=== PATIENT | female | born 1975 | race Hispanic/Latino ===

== ENCOUNTER 2017-10-31 16:02 | Emergency (ER) | payer OTHER, BC ==
--- NOTE | 2017-10-31 18:09 | RAD ---
TWO VIEWS RIGHT HIP: History: Right hip pain for one month. Difficulty walking. FINDINGS: AP and frogleg views right hip obtained. The right hip is unremarkable. No evidence of fractures, subluxations, or bony lesions seen. IMPRESSION: Unremarkable AP and frogleg views right hip. POS: [facility]
[2017-10-31] MEDS ORDERED: Diazepam 5 MG TAB ONE (18:45)
== END 2017-10-31 18:47 | disposition home or self-care (01) ==
LOC: ERS 16:02
DX: S76.011A Strain of muscle, fascia and tendon of right hip, initial encounter (principal); E03.9 Hypothyroidism, unspecified; G43.909 Migraine, unspecified, not intractable, without status migrainosus; X50.9XXA Other and unspecified overexertion or strenuous movements or postures, initial encounter

== ENCOUNTER 2018-04-17 16:38 | Emergency (ER) | payer OTHER, BC ==
[2018-04-17 17:09] LABS: #Eosinphils 0.4 thou/uL (0.0-0.7); #Lymphocytes 1.4 thou/uL (1.20-3.40); #Monocytes 0.5 thou/uL (0.11-0.59); #Neutrophils 3.6 thou/uL (1.40-6.50); %Basophils 0.3 % (0.0-1.0); %Eosinophils 6.1 % (0.0-10.0); %Lymphocytes 23.7 % (21.0-51.0); %Monocytes 8.8 % (0.0-10.0); %Neutrophils 61.1 % (42.0-75.0); Hemoglobin 14.5 g/dL (12.0-16.0); Mean Corpuscular Hemoglobin 30.3 pg (27.0-31.0); Mean Corpuscular Volume 89.3 fl (81.0-99.0); Mean Platelet Volume 6.3 fL (7.4-10.4); Platelet Count 313 thou/uL (130-400); Red Blood Cell (RBC) Count 4.78 mill/uL (4.20-5.40); White Blood Cell (WBC) Count 5.9 thou/uL (4.8-10.8)
[2018-04-17 17:36] LABS: ALT (SGPT) 34 U/L (8-55); AST (SGOT) 29 U/L (5-34); Albumin 4.4 g/dL (3.5-5.0); Alkaline Phosphatase 75 U/L (40-150); Anion Gap 11 mmol/L (10-20); BUN (Urea Nitrogen) 11 mg/dL (7.0-18.7); Bilirubin, Total 0.5 mg/dL (0.2-1.2); Calc. Creatinine Clearance 0 mL/min (70-130); Calcium 9.2 mg/dL (7.8-10.44); Carbon Dioxide 21 mmol/L (22-29); Chloride 110 mmol/L (98-107); Estimated GFR-MDRD 74; Globulin 3.4 g/dL (2.4-3.5); Glucose 117 mg/dL (70-105); Lipase 11 U/L (8-78); Potassium 3.7 mmol/L (3.5-5.1); Protein, Total 7.8 g/dL (6.0-8.3); Sodium 138 mmol/L (136-145)
[2018-04-17 18:53] LABS: Bilirubin Negative (Negative); Blood, Urine Large (Negative); Clarity CLEAR (Clear); Glucose, Urine (Dipstick) Negative (Negative); Leukocyte Negative (Negative); Nitrite Negative (Negative); Protein, Urine (Dipstick) Negative (Neg-Trace); Specific Gravity, Urine 1.024 (1.002-1.036); Urobilinogen 0.2 mg/dL (0.2-1.0); pH, Urine 6.5 (5.0-9.0)
[2018-04-17 18:55] LABS: Bacteria/HPF None Seen HPF (None Seen); Hyaline Casts/LPF 0-3 HYALINE CAST LPF (0-3 Hyaline); Pathc Cast-AUWi Flag 0.43 (0-2.49); RBC/HPF 21-50 HPF (0-3); Squamous Epithelial 0-3 HPF (0-3); WBC/HPF 0-3 HPF (0-3)
[2018-04-17 19:01] LABS: Pregnancy Test - Urine (BHCG) Negative (Negative); Pregu Control Background? CLEAR/WHITE (CLR/WHITE); Pregu Control Bar Appear? YES (CONTROL BAR); Specific Gravity 1.024 (1.002-1.036)
[2018-04-17] MEDS ORDERED: Promethazine 25 MG TAB ONE (20:41)
== END 2018-04-17 20:52 | disposition home or self-care (01) ==
LOC: ERS 16:38
DX: R10.11 Right upper quadrant pain (principal); E03.9 Hypothyroidism, unspecified; G43.909 Migraine, unspecified, not intractable, without status migrainosus; F41.9 Anxiety disorder, unspecified; Z79.899 Other long term (current) drug therapy
CPT/HCPCS: 36415; 80053; 81003; 81015; 81025; 83690; 85025; 96360

== ENCOUNTER 2018-05-30 14:40 | Outpatient (CLI) | payer OTHER, BC ==
[2018-05-30 15:57] LABS: #Basophils 0.1 thou/uL (0.0-0.2); #Eosinphils 0.4 thou/uL (0.0-0.7); #Lymphocytes 2.6 thou/uL (1.20-3.40); #Monocytes 0.5 thou/uL (0.11-0.59); #Neutrophils 4.1 thou/uL (1.40-6.50); %Basophils 0.7 % (0.0-1.0); %Eosinophils 5.6 % (0.0-10.0); %Lymphocytes 33.5 % (21.0-51.0); %Monocytes 6.8 % (0.0-10.0); %Neutrophils 53.4 % (42.0-75.0); Mean Corpuscular HGB CONC 34.3 g/dL (32.0-36.0); Mean Corpuscular Hemoglobin 30.6 pg (27.0-31.0); Mean Corpuscular Volume 89.3 fL (78.0-98.0); Mean Platelet Volume 6.2 fL (7.4-10.4); Platelet Count 350 thou/uL (130-400); Red Blood Cell (RBC) Count 4.56 mill/uL (4.20-5.40); White Blood Cell (WBC) Count 7.7 thou/uL (4.8-10.8)
[2018-05-30 16:01] LABS: BHCG - Serum Negative (NEGATIVE); Pregs Control Background? CLEAR/WHITE (CLR/WHITE); Pregs Control Bar Appear? YES (CONTROL BAR)
[2018-05-30 16:16] LABS: ALT (SGPT) 27 U/L (8-55); AST (SGOT) 21 U/L (5-34); Albumin 4.1 g/dL (3.5-5.0); Alkaline Phosphatase 77 U/L (40-150); Anion Gap 9 mmol/L (10-20); BUN (Urea Nitrogen) 17 mg/dL (7.0-18.7); Bilirubin, Total 0.3 mg/dL (0.2-1.2); Calc. Creatinine Clearance 0 mL/min (70-130); Carbon Dioxide 25 mmol/L (22-29); Chloride 108 mmol/L (98-107); Estimated GFR-MDRD 77; Globulin 3.2 g/dL (2.4-3.5); Glucose 104 mg/dL (70-105); Protein, Total 7.3 g/dL (6.0-8.3); Sodium 138 mmol/L (136-145)
== END 2018-05-30 14:41 | disposition home or self-care (01) ==
LOC: LABBT 14:40
PROVIDERS: ATTEND Surgery
DX: Z01.812 Encounter for preprocedural laboratory examination (principal); K43.9 Ventral hernia without obstruction or gangrene
CPT/HCPCS: 80053; 84703; 85025

== ENCOUNTER 2018-06-01 06:51 | Inpatient (IN) | payer OTHER, BC ==
[2018-05-30 15:20] VITALS: BMI 30.4
[2018-06-01] MEDS ORDERED: CEFAZOLIN/Water 2 GM/20 ML SYRINGE ONE (07:28)
[2018-06-01] MEDS ORDERED: Bupivacaine HCl 0.25%/Epi 0.0005/PF 10 ML VIAL FS ONE (08:39)
[2018-06-01] MEDS ORDERED: Midazolam HCl 2 mg/2 ml Vial ONE ×2 (08:57→09:01)
[2018-06-01] MEDS ORDERED: Fentanyl 100 MCG/2 ML VIAL ONE (09:01)
[2018-06-01] MEDS ORDERED: HYDROmorphone 0.5 MG/0.5 ML SYRINGE ONE (09:01)
[2018-06-01] MEDS ORDERED: diphenhydrAMINE 50 MG/ML VIAL IVP PRN (09:57)
[2018-06-01] MEDS ORDERED: Naloxone HCl 0.4 mg/ml Vial IV PRN (09:57)
[2018-06-01] MEDS ORDERED: Promethazine HCl 25 MG/ML VIAL IM PRN ×3 (09:57→10:20)
[2018-06-01] MEDS ORDERED: Zolpidem Tartrate 5 MG TAB PO PRN (09:57)
[2018-06-01] MEDS ORDERED: diphenhydrAMINE 25 MG CAP PO PRN (09:57)
[2018-06-01] MEDS ORDERED: Promethazine HCl 25 MG/ML VIAL SLOW IVP PRN ×2 (09:57→17:50)
[2018-06-01] MEDS ORDERED: diphenhydrAMINE 50 MG/ML VIAL IM PRN (09:57)
[2018-06-01] MEDS ORDERED: Morphine CADD 1 MG/ML CADD IVPB PRN (09:57)
[2018-06-01] MEDS ORDERED: Meperidine HCl/PF 25 MG/ML VIAL SLOW IVP PRN (09:57)
[2018-06-01] MEDS ORDERED: Ondansetron HCl/PF 4 MG/2 ML Vial IVP PRN ×3 (09:57→10:20)
[2018-06-01] MEDS ORDERED: Communication Order-Pharmacy FS SCH (10:00)
[2018-06-01] MEDS ORDERED: HYDROcodone/Acetaminophen 10/325 mg Tablet PO PRN ×2 (10:20)
[2018-06-01] MEDS ORDERED: Dextrose 5% in Water 1,000 ML IV PRN (10:20)
[2018-06-01] MEDS ORDERED: Morphine 4 MG/ML Carpuject SLOW IVP PRN (10:20)
[2018-06-01] MEDS ORDERED: Dextrose 50% Abboject 50 ML SYRINGE SLOW IVP PRN (10:20)
[2018-06-01] MEDS ORDERED: hydrALAZINE 20 MG/ML VIAL SLOW IVP PRN (10:20)
[2018-06-01] MEDS ORDERED: Ketorolac Tromethamine 30 MG/ML VIAL IVP SCH (12:00)
[2018-06-01] MEDS ORDERED: Acetaminophen 1,000 MG in Premix Bag 1 BAG IVPB SCH (12:00)
--- NOTE | 2018-06-01 12:08 | OP ---
DATE OF PROCEDURE: 06/01/2018 PREOPERATIVE DIAGNOSIS: Ventral hernia. SURGEON: Ric Pickering M.D. PROCEDURE: Laparoscopic ventral hernia repair with mesh. INDICATIONS: A 42-year-old female who has developed a bulge just above the umbilicus. She has had a bdominoplasty. The bulge seems to change with activity. FINDINGS: She had 2 small hernias. She had a small umbilical hernia and a small epigastric hernia. There was quite a bit of preperitoneal adipose in that ventral area that was removed. PROCEDURE IN DETAIL: After informed consent was obtained, the patient was taken to the operating geovani m and given general endotracheal anesthesia. She was placed in the supine position with the right si de slightly elevated. Her flank and abdomen were prepped and draped in usual fashion. Local anesthe hans infiltrated subcutaneously and deep. A 12 mm incision was performed right flank. Veress needle inserted. Drop test performed. Pneumoperitoneum was created to a volume of 2 liters of carbon dioxi de. Utilizing a bladeless 12 mm trocar and 0 degree laparoscope direct visual entry abdominal cavity was performed. Pneumoperitoneum was created to a pressure of 15 mmHg and two 5 mm ports were placed right lateral abdomen. The anterior abdominal wall was inspected. Initially I did not see an obvio us hernia, but she had a lot of preperitoneal fat, so I wound up taking this down to expose the fasci a and actually found 2 hernias, I found a small umbilical hernia as well as an epigastric hernia. Ad ditional adipose was removed from these small defects into the subcu and added to the adipose that I removed from the anterior abdominal wall. They were within 2 cm of each other, so a 12 x 12 cm Proce ed mesh was used. This was fashioned by placing four 0 Ethibond sutures spread out evenly across the perimeter, then the mesh was hydrated, rolled, and inserted intra-abdominally. Then it was unrolled and the pressure was decreased to 10 mmHg. The sutures were then individually grasped utilizing the GraNee needle and secured. The mesh was further secured to the abdominal wall with the SecureStrap Tacker. Hemostasis was assured. The 12 mm port was closed, fascia was closed with 0 Vicryl suture a nd the GraNee needle. Hemostasis assured, but prior to closure, I placed an Endosac through the 12 m m port and retrieved any of the adipose that had been resected from the anterior abdominal wall. Hem ostasis was assured. Trocars and retractors removed. The skin closed with interrupted 4-0 Rapide. Dermabond applied. The patient tolerated the procedure well and was transferred to recovery in good condition. Sponge and needle count verified correct x2.
[2018-06-01] MEDS: Lactated Ringer's 1,000 ML IV SCH ×2 (13:14→22:19)
[2018-06-01] MEDS ORDERED: PROPOFOL 200 MG/20 ML VIAL ONE (15:09)
[2018-06-01] MEDS ORDERED: Ondansetron HCl/PF 4 MG/2 ML Vial ONE (15:09)
[2018-06-01] MEDS ORDERED: Lidocaine 1% PF 5 ML VIAL ONE (15:09)
[2018-06-01] MEDS ORDERED: Dexamethasone 20 MG/5 ML VIAL ONE (15:09)
[2018-06-01] MEDS ORDERED: Glycopyrrolate 0.2 MG/ML 5 ML SYRINGE ONE (15:09)
[2018-06-01] MEDS ORDERED: Ketorolac Tromethamine 30 MG/ML VIAL ONE (15:09)
[2018-06-01] MEDS: Acetaminophen 1,000 MG in Premix Bag 1 BAG IVPB SCH ×2 (16:26→22:18)
[2018-06-01] MEDS: Ketorolac Tromethamine 30 MG/ML VIAL IVP SCH ×2 (16:26→22:18)
[2018-06-01] MEDS: cefOXitin 2 GM in Sodium Chloride 0.9% 100 ML IVPB SCH (17:08)
[2018-06-01] MEDS ORDERED: HYDROcodone/Acetaminophen 5/325 mg Tablet PO PRN ×2 (19:59)
[2018-06-01] MEDS ORDERED: Morphine 4 MG/ML VIAL SLOW IVP PRN (20:01)
[2018-06-01] MEDS ORDERED: Docusate 100 MG CAP PO PRN (20:06)
[2018-06-01] MEDS ORDERED: Famotidine/PF 20 mg/2ml Vial SLOW IVP SCH (21:00)
[2018-06-01] MEDS: Famotidine 20 MG TAB PO SCH (21:24)
[2018-06-02] MEDS: cefOXitin 2 GM in Sodium Chloride 0.9% 100 ML IVPB SCH ×2 (00:29→08:59)
[2018-06-02 04:31] LABS: #Lymphocytes 1.7 thou/uL (1.20-3.40); #Monocytes 0.9 thou/uL (0.11-0.59); #Neutrophils 10.8 thou/uL (1.40-6.50); %Basophils 0.1 % (0.0-1.0); %Eosinophils 0.1 % (0.0-10.0); %Lymphocytes 12.7 % (21.0-51.0); %Monocytes 6.5 % (0.0-10.0); %Neutrophils 80.7 % (42.0-75.0); Hemoglobin 12.6 g/dL (12.0-16.0); Mean Corpuscular HGB CONC 33.6 g/dL (32.0-36.0); Mean Corpuscular Hemoglobin 30.7 pg (27.0-31.0); Mean Corpuscular Volume 91.3 fL (78.0-98.0); Mean Platelet Volume 6.4 fL (7.4-10.4); Platelet Count 306 thou/uL (130-400); RBC Distribution Width 12.1 % (11.5-14.5); Red Blood Cell (RBC) Count 4.11 mill/uL (4.20-5.40); White Blood Cell (WBC) Count 13.4 thou/uL (4.8-10.8)
[2018-06-02] MEDS: Ketorolac Tromethamine 30 MG/ML VIAL IVP SCH (05:09)
[2018-06-02] MEDS: Acetaminophen 1,000 MG in Premix Bag 1 BAG IVPB SCH (05:09)
[2018-06-02 07:39] VITALS: BP 107/68; TEMP 97.9
[2018-06-02] MEDS: Lactated Ringer's 1,000 ML IV SCH (07:43)
--- NOTE | 2018-06-02 08:10 | DIS ---
DISCHARGE DIAGNOSIS: Ventral hernia. SURGEON: Dr. Ric Pickering PROCEDURES DURING ADMISSION: Laparoscopic ventral hernia repair with mesh. HOSPITAL COURSE: The patient was admitted, taken to the operating room where she underwent a laparos copic ventral hernia repair with mesh. Postoperatively, she is doing well. She did have some nausea and vomiting that has resolved, it is related to her narcotics. She is feeling much better, tolerat ing liquids. She is discharged home in good condition on hydrocodone and Zofran. She will follow up with me in 2 weeks.
[2018-06-02] MEDS ORDERED: Enoxaparin Sodium 40 MG/0.4 ML SYRINGE SC SCH (09:00)
[2018-06-02] MEDS: Famotidine 20 MG TAB PO SCH (09:04)
== END 2018-06-02 11:30 | disposition home or self-care (01) | DRG 355 ==
LOC: SDC 06:51 → SURG B 11:56
PROVIDERS: ADMIT Surgery; ATTEND Surgery
PROC: 0WUF0JZ Supplement Abdominal Wall with Synthetic Substitute, Open Approach (ICD-10-PCS; principal; 2018-06-01)
PROC: 0WJF4ZZ Inspection of Abdominal Wall, Percutaneous Endoscopic Approach (ICD-10-PCS; 2018-06-01)
DX: K43.9 Ventral hernia without obstruction or gangrene (principal); Z90.49 Acquired absence of other specified parts of digestive tract; I10 Essential (primary) hypertension; Z88.8 Allergy status to other drugs, medicaments and biological substances
CPT/HCPCS: 36415; 85025; C1781; J0131; J0694; J1100; J1170; J1650; J1885; J2001; J2250; J2274; J2405; J2550; J2704; J3010; J7050

== ENCOUNTER 2018-07-26 19:42 | Emergency (ER) | payer OTHER, BC ==
[2018-07-26 20:54] LABS: #Basophils 0.1 thou/uL (0.0-0.2); #Eosinphils 0.4 thou/uL (0.0-0.7); #Lymphocytes 2.9 thou/uL (1.20-3.40); #Monocytes 0.5 thou/uL (0.11-0.59); #Neutrophils 4.4 thou/uL (1.40-6.50); %Basophils 0.7 % (0.0-1.0); %Lymphocytes 35.2 % (21.0-51.0); %Monocytes 5.8 % (0.0-10.0); %Neutrophils 53.3 % (42.0-75.0); Hemoglobin 13.8 g/dL (12.0-16.0); Mean Corpuscular HGB CONC 34.5 g/dL (32.0-36.0); Mean Corpuscular Hemoglobin 30.9 pg (27.0-31.0); Mean Corpuscular Volume 89.8 fL (78.0-98.0); Mean Platelet Volume 6.4 fL (7.4-10.4); Platelet Count 432 thou/uL (130-400); RBC Distribution Width 12.2 % (11.5-14.5); Red Blood Cell (RBC) Count 4.47 mill/uL (4.20-5.40); White Blood Cell (WBC) Count 8.3 thou/uL (4.8-10.8)
[2018-07-26 21:18] LABS: ALT (SGPT) 24 U/L (8-55); AST (SGOT) 17 U/L (5-34); Albumin 4.3 g/dL (3.5-5.0); Alkaline Phosphatase 83 U/L (40-150); Anion Gap 13 mmol/L (10-20); BUN (Urea Nitrogen) 13 mg/dL (7.0-18.7); Bilirubin, Total 0.3 mg/dL (0.2-1.2); CK (CPK) 50 U/L (29-168); Calc. Creatinine Clearance 0 mL/min (70-130); Calcium 9.3 mg/dL (7.8-10.44); Carbon Dioxide 23 mmol/L (22-29); Chloride 106 mmol/L (98-107); Estimated GFR-MDRD 76; Globulin 3.5 g/dL (2.4-3.5); Glucose 115 mg/dL (70-105); Lipase 12 U/L (8-78); Potassium 3.8 mmol/L (3.5-5.1); Protein, Total 7.8 g/dL (6.0-8.3); Sodium 138 mmol/L (136-145)
--- NOTE | 2018-07-26 21:24 | RAD ---
PORTABLE AP CHEST X-RAY 07/26/18 HISTORY: Chest pain. COMPARISON: 12/25/07. FINDINGS: The cardiac silhouette and pulmonary vasculature are within normal limits. There is mild patchy incre ased density at the medial right lung base which is thought to be related to superimposition of the s tructures and vasculature. Lungs are otherwise clear. No other interval change. IMPRESSION: Mild patchy density at the medial right lung base probably related to superimposition of structures i ncluding vasculature. This is not thought to be related to atelectasis or pneumonia, but followup frank st x-ray is suggested. POS: [facility]
[2018-07-26 21:27] LABS: CKMB 0.7 ng/mL (0-6.6); Troponin I Less than 0.010 ng/mL (< 0.028)
[2018-07-26] MEDS ORDERED: Ibuprofen 200 MG TAB ONE (22:56)
--- NOTE | 2018-07-29 19:44 | EKG ---
Test Reason : Blood Pressure : / mmHG Vent. Rate : 062 BPM Atrial Rate : 062 BPM P-R Int : 148 ms QRS Dur : 078 ms QT Int : 414 ms P-R-T Axes : 037 043 045 degrees QTc Int : 420 ms Normal sinus rhythm Nonspecific ST abnormality T-wave inversion in III Q waves III Abnormal ECG Confirmed by RAISSA CAPUTO M.D. ([id number]), editor magazine KIRSTAL STARKS ([id number]) on 07/29/2018 7:44:15 PM Referred By: Confirmed By:RAISSA CAPUTO M.D.
== END 2018-07-26 23:31 | disposition home or self-care (01) ==
LOC: ERS 19:42
DX: R07.89 Other chest pain (principal); E03.9 Hypothyroidism, unspecified; G43.909 Migraine, unspecified, not intractable, without status migrainosus; F41.9 Anxiety disorder, unspecified; Z79.899 Other long term (current) drug therapy
CPT/HCPCS: 36415; 71045; 80053; 82553; 83690; 83880; 84484; 85025; 93005

== ENCOUNTER 2018-08-25 12:10 | Outpatient (CLI) | payer OTHER, BC ==
--- NOTE | 2018-08-25 13:55 | RAD ---
CHEST: Date: 08/25/18 HISTORY: Probable abnormality on 07/26/18. FINDINGS: Comparison made with exam of 07/26/18. The heart size is normal. The lungs are expanded without focal areas of consolidation, pneumothoraces , or pleural effusions. A mild density in the medial right lung base is again seen, likely related to superimposition of overlying structures. IMPRESSION: Stable exam. No acute process. RECOMMENDATION: A 6 month follow-up is recommended. POS: [facility]
== END 2018-08-25 12:11 | disposition home or self-care (01) ==
LOC: BICRAD 12:10
PROVIDERS: ATTEND Family Medicine
DX: R07.9 Chest pain, unspecified (principal)
CPT/HCPCS: 71046

== ENCOUNTER 2018-11-10 12:15 | Outpatient (CLI) | payer OTHER, BC ==
--- NOTE | 2018-11-10 13:40 | CT ---
CT CHEST WITH IV CONTRAST: Date: 11-10-18 Provided Clinical History: Abdominal chest radiograph. FINDINGS: The heart, pericardium, and great vessels demonstrate an unremarkable CT appearance. The lungs are free of significant opacity. The airway appears patent and of normal caliber. No pleural fluid or pneumothorax apparent. No evidence for thoracic lymph node enlargement. Visualized portions of the upper abdomen demonstrate an unremarkable CT appearance. IMPRESSION: No evidence for an acute process. POS: [facility]
== END 2018-11-10 12:16 | disposition home or self-care (01) ==
LOC: BICCT 12:15
PROVIDERS: ATTEND Internal Medicine
DX: R91.8 Other nonspecific abnormal finding of lung field (principal)
CPT/HCPCS: 71260

== ENCOUNTER 2018-12-18 11:39 | Emergency (ER) | payer OTHER, BC ==
[2018-12-18 12:11] LABS: #Basophils 0.1 thou/uL (0.0-0.2); #Eosinphils 0.2 thou/uL (0.0-0.7); #Lymphocytes 4.7 thou/uL (1.20-3.40); #Neutrophils 7.3 thou/uL (1.40-6.50); %Basophils 0.8 % (0.0-1.0); %Eosinophils 1.6 % (0.0-10.0); %Lymphocytes 35.5 % (21.0-51.0); %Monocytes 7.5 % (0.0-10.0); %Neutrophils 54.7 % (42.0-75.0); Hemoglobin 14.9 g/dL (12.0-16.0); Mean Corpuscular HGB CONC 32.9 g/dL (32.0-36.0); Mean Corpuscular Hemoglobin 30.1 pg (27.0-31.0); Mean Corpuscular Volume 91.4 fL (78.0-98.0); Mean Platelet Volume 6.7 fL (7.4-10.4); Platelet Count 394 thou/uL (130-400); RBC Distribution Width 12.4 % (11.5-14.5); Red Blood Cell (RBC) Count 4.96 mill/uL (4.20-5.40); White Blood Cell (WBC) Count 13.3 thou/uL (4.8-10.8)
[2018-12-18 12:31] LABS: ALT (SGPT) 26 U/L (8-55); AST (SGOT) 16 U/L (5-34); Albumin 4.7 g/dL (3.5-5.0); Alkaline Phosphatase 82 U/L (40-150); Anion Gap 14 mmol/L (10-20); BUN (Urea Nitrogen) 18 mg/dL (7.0-18.7); Bilirubin, Total 0.4 mg/dL (0.2-1.2); Calc. Creatinine Clearance 0 mL/min (70-130); Calcium 9.6 mg/dL (7.8-10.44); Carbon Dioxide 24 mmol/L (22-29); Chloride 104 mmol/L (98-107); Estimated GFR-MDRD 59; Globulin 3.5 g/dL (2.4-3.5); Glucose 100 mg/dL (70-105); Potassium 3.6 mmol/L (3.5-5.1); Protein, Total 8.2 g/dL (6.0-8.3); Sodium 138 mmol/L (136-145)
[2018-12-18 13:16] LABS: BHCG - Serum Negative (NEGATIVE); Pregs Control Background? CLEAR/WHITE (CLR/WHITE); Pregs Control Bar Appear? YES (CONTROL BAR)
--- NOTE | 2018-12-18 13:41 | RAD ---
CHEST ONE VIEW ABDOMEN TWO VIEWS: History: Syncope. FINDINGS: Cardiac silhouette and pulmonary vasculature are unremarkable. Mediastinum is midline. No confluent a irspace consolidation or evidence of subdiaphragmatic gas. Gas and stool throughout the colon and rectum. No differential air fluid levels. Metallic clips overl ie the gallbladder fossa. IMPRESSION: 1. Nonspecific bowel gas pattern. No evidence of obstruction. 2. Status post cholecystectomy. POS: [facility]
[2018-12-18] MEDS ORDERED: Meclizine HCl 25 MG TAB ONE (14:24)
[2018-12-18 16:05] LABS: Bilirubin Negative (Negative); Blood, Urine Negative (Negative); Clarity CLEAR (Clear); Glucose, Urine (Dipstick) Negative (Negative); Leukocyte Trace (Negative); Nitrite Negative (Negative); Protein, Urine (Dipstick) Negative (Neg-Trace); Specific Gravity, Urine 1.015 (1.002-1.036); Urobilinogen 0.2 mg/dL (0.2-1.0)
[2018-12-18 16:07] LABS: Bacteria/HPF None Seen HPF (None Seen); Hyaline Casts/LPF 0-3 HYALINE CAST LPF (0-3 Hyaline); RBC/HPF 0-3 HPF (0-3); Squamous Epithelial 0-3 HPF (0-3); WBC/HPF 0-3 HPF (0-3)
== END 2018-12-18 15:27 | disposition home or self-care (01) ==
LOC: ERS 11:39
DX: R55 Syncope and collapse (principal); I95.9 Hypotension, unspecified; G43.909 Migraine, unspecified, not intractable, without status migrainosus; E03.9 Hypothyroidism, unspecified; F41.9 Anxiety disorder, unspecified; Z79.899 Other long term (current) drug therapy
CPT/HCPCS: 74022; 80053; 81003; 81015; 84443; 84484; 84703; 85025; 93005; 96360; 96361

== ENCOUNTER 2018-12-28 16:00 | Outpatient (CLI) | payer OTHER, BC | END 2018-12-28 16:01 | disposition home or self-care (01) | LOC: SLEEPLAB 16:00 | PROVIDERS: ATTEND Internal Medicine | DX: G47.33 Obstructive sleep apnea (adult) (pediatric) (principal); E66.9 Obesity, unspecified; F41.9 Anxiety disorder, unspecified; K21.9 Gastro-esophageal reflux disease without esophagitis; R06.83 Snoring; R35.1 Nocturia; R51 Headache; R09.89 Other specified symptoms and signs involving the circulatory and respiratory systems; Z68.32 Body mass index [BMI] 32.0-32.9, adult | CPT/HCPCS: 95806 ==

== ENCOUNTER 2019-01-15 08:50 | Outpatient (CLI) | payer OTHER, BC | END 2019-01-15 08:51 | disposition home or self-care (01) | LOC: BICMAMMO 08:50 | PROVIDERS: ATTEND Family Medicine | DX: Z12.31 Encounter for screening mammogram for malignant neoplasm of breast (principal) | CPT/HCPCS: 77063; 77067 ==

== ENCOUNTER 2019-01-15 10:02 | Outpatient (CLI) | payer OTHER, BC ==
--- NOTE | 2019-01-15 11:25 | RAD ---
TWO VIEWS OF THE CHEST: COMPARISON: 08/25/2018. HISTORY: Two view skin test. FINDINGS: Two views of the chest show normal sized cardiomediastinal silhouette. There is no evidence of consol idation, mass, or pleural effusion. The bones are unremarkable. IMPRESSION: No evidence of acute cardiopulmonary disease. POS: [facility]
== END 2019-01-15 10:03 | disposition home or self-care (01) ==
LOC: BICRAD 10:02
PROVIDERS: ATTEND Family Medicine
DX: Z11.1 Encounter for screening for respiratory tuberculosis (principal)
CPT/HCPCS: 71046

== ENCOUNTER 2020-12-09 09:30 | Outpatient (CLI) | payer BC ==
--- NOTE | 2020-12-09 10:05 | MMO ---
Bilateral MAMMO Bilat Screen [facility]. CLINICAL HISTORY: Patient is 45 years old and is seen for screening. The patient has no family history of breast cancer. The patient has no personal history of cancer. The patient has a history of Breast reduction in 2009. VIEWS: The views performed were: bilateral craniocaudal with tomosynthesis and bilateral mediolateral oblique with tomosynthesis. FILMS COMPARED: The present examination has been compared to prior imaging studies performed at [facility] on 05/17/2013 and 01/15/2019. This study has been interpreted with the assistance of computer-aided detection. MAMMOGRAM FINDINGS: There are scattered fibroglandular densities. There are no suspicious masses, suspicious calcifications, or new areas of architectural distortion. IMPRESSION: THERE IS NO MAMMOGRAPHIC EVIDENCE OF MALIGNANCY. A ROUTINE FOLLOW-UP MAMMOGRAM IN 1 YEAR IS RECOMMENDED. THE RESULTS OF THIS EXAM WERE SENT TO THE PATIENT. ACR BI-RADS Category 1 - Negative MAMMOGRAPHY NOTE: 1. A negative mammogram report should not delay a biopsy if a dominant of clinically suspicious mass is present. 2. Approximately 10% to 15% of breast cancers are not detected by mammography. 3. Adenosis and dense breasts may obscure an underlying neoplasm. Reported by: ANGELINA ARNOLD MD Electonically Signed: [id number]
== END 2020-12-09 09:31 | disposition home or self-care (01) ==
LOC: BICMAMMO 09:30
PROVIDERS: ATTEND Family Medicine
DX: Z12.31 Encounter for screening mammogram for malignant neoplasm of breast (principal); Z98.890 Other specified postprocedural states
CPT/HCPCS: 77063; 77067

== ENCOUNTER 2023-10-01 10:36 | Emergency (ER) | payer OTHER ==
[2023-10-01] MEDS ORDERED: Ketorolac Tromethamine 30 MG/ML VIAL ONE (11:30)
[2023-10-01] MEDS ORDERED: Acetaminophen 500 MG TAB ONE (11:30)
[2023-10-01] MEDS ORDERED: Prochlorperazine 10 MG/2 ML VIAL ONE (11:31)
[2023-10-01] MEDS ORDERED: Magnesium 2 GM/50 ML BAG (IN WATER) ONE (11:31)
[2023-10-01] MEDS ORDERED: methylPREDNISolone Sod Succ/PF 125 MG/2 ML VIAL ONE (11:31)
[2023-10-01 11:54] LABS: BHCG - Serum Negative (NEGATIVE); Pregs Control Background? CLEAR/WHITE (CLR/WHITE); Pregs Control Bar Appear? YES (CONTROL BAR)
[2023-10-01 12:59] LABS: #Eosinphils 0.2 thou/uL (0.0-0.7); #Monocytes 0.5 thou/uL (0.11-0.59); #Neutrophils 4.3 thou/uL (1.40-6.50); %Basophils 0.5 % (0.0-1.0); %Eosinophils 2.3 % (0.0-10.0); %Lymphocytes 31.8 % (21.0-51.0); %Monocytes 6.4 % (0.0-10.0); %Neutrophils 58.7 % (42.0-75.0); Hematocrit 42.7 % (36.0-47.0); Hemoglobin 14.3 g/dL (12.0-16.0); Mean Corpuscular HGB CONC 33.5 g/dL (32.0-36.0); Mean Corpuscular Hemoglobin 29.8 pg (27.0-31.0); Mean Platelet Volume 8.9 fL (7.4-10.4); Platelet Count 312 10x3/uL (130-400); RBC Distribution Width 13.1 % (11.5-14.5); White Blood Cell (WBC) Count 7.4 10x3/uL (4.8-10.8)
[2023-10-01 13:15] LABS: ALT (SGPT) 31 U/L (8-55); AST (SGOT) 21 U/L (5-34); Albumin 4.1 g/dL (3.5-5.0); Alkaline Phosphatase 84 U/L (40-110); Anion Gap 15 mmol/L (10-20); BUN (Urea Nitrogen) 12 mg/dL (7.0-18.7); Bilirubin, Total 0.4 mg/dL (0.2-1.2); Calc. Creatinine Clearance 0 mL/min (70-130); Calcium 8.3 mg/dL (7.8-10.44); Carbon Dioxide 20 mmol/L (22-29); Chloride 110 mmol/L (98-107); Estimated GFR 88; Globulin 2.9 g/dL (2.4-3.5); Glucose 133 mg/dL (70-105); Potassium 3.9 mmol/L (3.5-5.1); Sodium 141 mmol/L (136-145)
== END 2023-10-01 13:57 | disposition home or self-care (01) ==
LOC: ERS 10:36
DX: G43.909 Migraine, unspecified, not intractable, without status migrainosus (principal); E03.9 Hypothyroidism, unspecified
CPT/HCPCS: 36415; 70450; 80053; 84703; 85025; 96361; 96365; 96375; J0780; J1885; J2930; J3475

== ENCOUNTER 2023-10-21 15:22 | Outpatient (CLI) | payer OTHER | END 2023-10-21 15:23 | disposition home or self-care (01) | LOC: BICMAMMO 15:22 | PROVIDERS: ATTEND Family Medicine | DX: Z12.31 Encounter for screening mammogram for malignant neoplasm of breast (principal); Z98.890 Other specified postprocedural states | CPT/HCPCS: 77063; 77067 ==